=== PATIENT | male | born 1970 | race Caucasian/White ===

== ENCOUNTER 2018-08-09 09:55 | Emergency (ER) | payer SELFPAY ==
[2018-08-09] MEDS ORDERED: ORPHENADRINE CITRATE 30 MG/ML ML ONE (11:19)
[2018-08-09] MEDS ORDERED: PREDNISONE 20 MG TABLET ONE (11:19)
[2018-08-09] MEDS ORDERED: KETOROLAC TROMETHAMINE 60 MG/2 ML VIAL ONE (11:20)
[2018-08-09] MEDS ORDERED: GADODIAMIDE 10 MMOL/20 ML VIAL IV ONE (12:07)
[2018-08-09] MEDS ORDERED: MORPHINE SULFATE 4 MG/1ML SYG ONE (14:45)
== END 2018-08-09 15:01 | disposition home or self-care (01) ==
LOC: EDH 09:55
DX: M48.02 Spinal stenosis, cervical region (principal)
CPT/HCPCS: 72125; 73610; 96372 ×2; 96374; 99284; J1885; J2270; J2360; A9579

== ENCOUNTER 2018-09-29 17:14 | Emergency (ER) | payer SELFPAY ==
[2018-09-29] MEDS ORDERED: IPRATROPIUM/ALBUTEROL SULFATE 3 ML SOLUTION IH ONE (18:29)
[2018-09-29 18:38] LABS: BASOPHILS % (AUTO) 1.1 % (0.0-5.0); EOSINOPHILS % (AUTO) 2.1 % (0.0-8.0); HEMATOCRIT 40.8 % (42-54); LYMPHOCYTES % (AUTO) 18.5 % (21.0-51.0); MEAN CORPUSCULAR HGB CONC 33.2 g/dL (32.0-36.0); MEAN CORPUSCULAR VOLUME 81.1 fL (79-99); MONOCYTES % (AUTO) 5.8 % (3.0-13.0); NEUTROPHILS % (AUTO) 72.5 % (40.0-77.0); PLATELET COUNT (AUTO) 275 K/uL (130-400); RED BLOOD CELL COUNT(AUTO) 5.03 MIL/uL (4.50-6.20); RED CELL DISTRIBUTION WIDTH 15.5 % (11.0-15.5); WHITE BLOOD COUNT (AUTO) 9.1 K/uL (4.8-10.8)
[2018-09-29 18:49] LABS: CREATININE 0.9 mg/dL (0.5-1.5); POTASSIUM 4.6 mmol/L (3.5-5.1)
[2018-09-29 18:54] LABS: ALBUMIN 3.4 g/dL (3.5-5.0); BILIRUBIN,TOTAL 0.4 mg/dL (0.2-1.0); TOTAL PROTEIN, SERUM 7.7 g/dL (6.0-8.3)
[2018-09-29] MEDS ORDERED: BENZONATATE 100 MG CAPSULE PO ONE (19:49)
[2018-09-29] MEDS ORDERED: AZITHROMYCIN 250 MG TABLET PO ONE (19:49)
== END 2018-09-29 21:01 | disposition home or self-care (01) ==
LOC: EDH 17:14
DX: R05 Cough (principal); R50.9 Fever, unspecified
CPT/HCPCS: 36415; 71045; 80053; 85025; 87804; 94640